=== PATIENT | female | born 1990 | race American Indian/Alaskan Native ===

== ENCOUNTER 2021-08-06 07:14 | Observation (INO) | payer MEDICAID ==
--- NOTE | 2021-08-06 07:54 | Emergency Department Report ---
ED General Adult HPI - General Chief complaint: Nausea/Vomiting/Diarrhea Stated complaint: N/V/ABD PAIN PUI?: No Time Seen by Provider: 08/06/21 07:51 Source: patient, EMS ( EMS documentation not available at time of chart dictation ), RN notes reviewed Mode of arrival: Stretcher Limitations: No Limitations - History of Present Illness Initial comments: The patient is a 30-year-old female, who is 7, para 5. She presents to the ER today with EMS. She complains of abdominal cramping, difficulty laying flat, nausea, vomiting, and generalized weakness. She denies urinary symptoms. EMS reports hypotension in the field. EMS gave fluids. In the emergency room, patient denies headache, neck pain, chest pain but does endorse abdominal pain, and shortness of breath with lying supine. Her symptoms improved with sitting upright. She denies urinary symptoms. She believes that she is today but she is not certain. She does not have a private outpatient [facility] [employer] [facility] [employer] physician that she is aware of. -: Gradual, hour(s) Location: abdomen Severity scale (0 -10): 0 Quality: aching Consistency: constant Improves with: rest Worsens with: movement - Related Data Previous Rx's Medication Instructions Recorded Last Taken Type Ferrous Sulfate [Feosol 325 MG tab] 325 mg PO BID #90 tablet 08/06/21 Unknown Rx Ibuprofen [Motrin 800 MG tab] 800 mg PO TID PRN #30 tablet 08/06/21 Unknown Rx oxyCODONE /ACETAMINOPHEN [Percocet 1 - 2 tab PO Q6HR PRN #7 tablet 08/06/21 Unknown Rx 5/325 mg] Allergies Allergy/AdvReac Type Severity Reaction Status Date / Time No Known Allergies Allergy Unverified 08/06/21 08:00 ED Review of Systems ROS: Stated complaint: N/V/ABD PAIN Other details as noted in HPI Constitutional: malaise, weakness. denies: fever Eyes: denies: eye discharge ENT: denies: epistaxis Respiratory: shortness of breath. denies: cough Cardiovascular: denies: chest pain Gastrointestinal: abdominal pain, nausea, vomiting Genitourinary: denies: dysuria Neurological: weakness ED Past Medical Hx - Medications Home Medications: Home Medications Medication Instructions Recorded Confirmed Last Taken Type Ferrous Sulfate [Feosol 325 MG tab] 325 mg PO BID #90 tablet 08/06/21 Unknown Rx Ibuprofen [Motrin 800 MG tab] 800 mg PO TID PRN #30 tablet 08/06/21 Unknown Rx oxyCODONE /ACETAMINOPHEN [Percocet 1 - 2 tab PO Q6HR PRN #7 tablet 08/06/21 Unknown Rx 5/325 mg] ED Physical Exam - General Limitations: Physical Limitation General appearance: alert, anxious, in distress - Head Head exam: Present: atraumatic, normocephalic - Eye Eye exam: Present: normal appearance, EOMI. Absent: nystagmus - ENT ENT exam: Present: normal exam, normal orophraynx, mucous membranes moist, normal external ear exam - Neck Neck exam: Present: normal inspection, full ROM. Absent: tenderness, meningismus - Respiratory Respiratory exam: Present: normal lung sounds bilaterally. Absent: respiratory distress, wheezes, rales, rhonchi, stridor, decreased breath sounds - Cardiovascular Cardiovascular Exam: Present: regular rate, normal rhythm, normal heart sounds. Absent: bradycardia, tachycardia, irregular rhythm, systolic murmur, diastolic murmur, rubs, gallop - GI/Abdominal GI/Abdominal exam: Present: soft, tenderness, other (There is mild diffuse abd ominal tenderness.). Absent: distended, guarding, rebound, rigid, pulsatile mass - Extremities Exam Extremities exam: Present: normal inspection, full ROM, other (2+ pulses noted in the bilateral upper and lower extremities. There is no palpable cord. negative Homans sign. Muscular compartments are soft. The pelvis is stable.). Absent: pedal edema, calf tenderness - Back Exam Back exam: Present: normal inspection, full ROM. Absent: tenderness, CVA tenderness (R), CVA tenderness (L), paraspinal tenderness, vertebral tenderness - Neurological Exam Neurological exam: Present: alert, oriented X3, other (No facial droop. Tongue midline. Extraocular movements intact bilaterally. Facial sensation intact to light touch in V1, V2, V3 distribution bilaterally. 5 and a 5 strength in 4 extremities. Sensation intact to light touch in 4 extremities.). Absent: motor sensory deficit - Psychiatric Psychiatric exam: Present: anxious - Skin Skin exam: Present: warm, dry, intact, normal color. Absent: rash ED Course Vital Signs 08/06/21 08/06/21 08/06/21 07:44 08:15 08:21 Temperature 97.4 F L Pulse Rate 87 Respiratory 18 14 Rate Blood Pressure Blood Pressure 93/45 [Left] O2 Sat by Pulse 98 100 100 Oximetry 08/06/21 08/06/21 08/06/21 08:24 08:30 08:46 Temperature 98.0 F Pulse Rate 90 87 93 H Respiratory 16 22 29 H Rate Blood Pressure 98/56 104/62 104/62 Blood Pressure [Left] O2 Sat by Pulse 100 100 100 Oximetry 08/06/21 08/06/21 08/06/21 09:00 09:16 10:21 Temperature Pulse Rate 81 82 Respiratory 17 16 Rate Blood Pressure 99/55 99/52 108/68 Blood Pressure [Left] O2 Sat by Pulse 100 100 Oximetry 08/06/21 10:31 Temperature Pulse Rate Respiratory Rate Blood Pressure 95/54 Blood Pressure [Left] O2 Sat by Pulse Oximetry - Reevaluation(s) Reevaluation #1: 08/06/21 10:23 Differential diagnosis, include but limited to: Orthostasis, vagal event, hype remesis gravidarum, , ectopic Assessment and plan: 30-year-old female, with abdominal pain, nausea, vomiting, tenderness, hypotension, found to have right-sided tubal , with heart rate, and positive free fluid in the right upper quadrant. During the patient's initial evaluation, she is afebrile, with reassuring vital signs, in moderate distress. I performed a bedside [id number] transabdominal ultrasound, and was not able to definitively identify an intrauterine . Therefore, dedicated laboratory studies and ultrasound were ordered. Have personally reviewed the ultrasound images, performed by radiology technicians, but these images have not been interpreted formally. However, I am confident in this diagnosis. I have reached out to obstetrics gynecology on-call, Dr. Ibarra. I discussed the patient's history, physical, laboratory studies imaging studies and clinical impression. I have requested an emergent gynecologic consultation for presumed right-sided tubal with impending rupture. Dr. Ibarra is going to come by and evaluate the patient emergently. Patient advised of nature of her diagnosis. Establish second large-bore IV, continue IV fluids, n.p.o., anticipate expedience transferred to the operating room for definitive intervention. Dr. Ibarra to assume care of the patient, and arrange operative intervention at this time. 08/06/21 14:17 ED Medical Decision Making - Lab Data Result diagrams: 08/06/21 08:07 08/06/21 08:07 Vital Signs 08/06/21 08/06/21 08/06/21 07:44 08:15 08:21 Temperature 97.4 F L Pulse Rate 87 Respiratory 18 14 Rate Blood Pressure Blood Pressure 93/45 [Left] O2 Sat by Pulse 98 100 100 Oximetry 08/06/21 08/06/21 08/06/21 08:24 08:30 08:46 Temperature 98.0 F Pulse Rate 90 87 93 H Respiratory 16 22 29 H Rate Blood Pressure 98/56 104/62 104/62 Blood Pressure [Left] O2 Sat by Pulse 100 100 100 Oximetry 08/06/21 09:00 Temperature Pulse Rate 81 Respiratory 17 Rate Blood Pressure 99/55 Blood Pressure [Left] O2 Sat by Pulse 100 Oximetry Lab Results 08/06/21 08/06/21 08/06/21 Range/Units 08:07 08:07 08:07 WBC 10.0 (4.5-11.0) K/mm3 RBC 3.22 L (3.65-5.03) M/mm3 Hgb 10.0 L (10.1-14.3) gm/dl Hct 30.1 L (30.3-42.9) % MCV 94 (79-97) fl MCH 31 (28-32) pg MCHC 33 (30-34) % RDW 16.0 H (13.2-15.2) % Plt Count 205 (140-440) K/mm3 Sodium 138 (137-145) mmol/L Potassium 4.1 (3.6-5.0) mmol/L Chloride 108.4 H (98-107) mmol/L Carbon Dioxide 19 L (22-30) mmol/L Anion Gap 15 mmol/L BUN 10 (7-17) mg/dL Creatinine 0.7 (0.6-1.2) mg/dL Estimated GFR > 60 ml/min BUN/Creatinine Ratio 14 % Glucose 129 H (65-100) mg/dL Calcium 8.1 L (8.4-10.2) mg/dL Magnesium 1.60 L (1.7-2.3) mg/dL Total Bilirubin 0.30 (0.1-1.2) mg/dL AST 9 (5-40) units/L ALT 7 (7-56) units/L Alkaline Phosphatase 37 (35-129) units/L Total Protein 5.2 L (6.3-8.2) g/dL Albumin 3.3 L (3.9-5) g/dL Albumin/Globulin Ratio 1.7 % HCG, Quant 52255 H (0-4) mIU/mL - EKG Data -: EKG Interpreted by Ms EKG shows normal: sinus rhythm Rate: normal - EKG Data 08/06/21 10:07 The EKG is interpreted at 08: 57 Sinus rhythm, rate 80 bpm. Normal axis, normal intervals, high left ventricular voltage, normal P wave axis. Motion artifact noted. Abnormal EKG. Not a STEMI. - Radiology Data Radiology results: report reviewed, image reviewed FIRSTTRIMESTER OBSTETRIC ULTRASOUND ULTRASOUND OB TRANSVAGINAL HISTORY: Abdominal pain during COMPARISON: None. TECHNIQUE: Routine transabdominal and transvaginal OB ultrasound performed. FINDINGS: Uterus: Mildly enlarged measuring 10.0 x 5.3 x 7.1 cm. Gestational Sac: A gestational sa c is identified in the vicinity of the right fallopian tubule which contains a small pole and yolk sac. Yolk Sac: Normal in appearance. Fetus/Embryo: [place]-rump length of 1.4 cm, corresponding to an estimated gestational age of 7 weeks 5 days. Embryonic/ anatomy is too small for evaluation. Embryonic/ cardiac activity: 127bpm Placenta: Too small for evaluation. Amniotic fluid volume: Subjectively appropriate for gestational age. Ovaries: The right ovary is normal in size and appearance with normal blood flow, measuring 2.2 x 1.5 x 1.7 cm. The left ovary is normal in size and appearance with normal blood flow, measuring 2.1 x 2.3 x 2.0 cm. Additional findings: There is moderate to large free fluid concerning for a ruptured ectopic . IMPRESSION Ruptured right tubal ectopic is suspected as described. CRITICAL RESULT: Time of Discovery (REGIONAL PROGRAM MANAGER/CDT): 0935 hours Time of Communication (REGIONAL PROGRAM MANAGER/CDT): 0938 hours Licensed Practitioner Receiving Report: Dr. Obregon Read-Back Performed: Yes. Signer Name: Steve Brown Jr, MD Signed: 08/06/2021 9:39 AM Workstation Name: [id number] Critical Care Time: Yes Critical care time in (mins) excluding proc time.: 35 Critical care attestation.: If time is entered above; I have spent that time in minutes in the direct care of this critically ill patient, excluding procedure time. ED Disposition Clinical Impression: Ruptured ectopic Disposition: ADMITTED INPATIENT Is pt being admited?: Yes Does the pt Need Aspirin: No Condition: Serious
[2021-08-06 08:28] LABS: Hematocrit 30.1 % (30.3-42.9); Mean Corpuscular HGB Conc 33 % (30-34); Mean Corpuscular Volume 94 fl (79-97); Platelet Count 205 K/mm3 (140-440); Red Blood Count 3.22 M/mm3 (3.65-5.03)
[2021-08-06] MEDS ORDERED: LACTATED RINGERS 1,000 ML IV ONE ×2 (08:30→10:26)
[2021-08-06] MEDS ORDERED: METOCLOPRAMIDE 10 MG/2 ML INJ IV SCH (08:30)
[2021-08-06] MEDS ORDERED: D5W/0.45% NACL 1,000 ML IV SCH (08:30)
[2021-08-06 08:46] LABS: Alanine Aminotransferase 7 units/L (7-56); Albumin 3.3 g/dL (3.9-5); BUN/Creatinine Ratio 14; Blood Urea Nitrogen 10 mg/dL (7-17); Calcium 8.1 mg/dL (8.4-10.2); Hemolysis Index 1
[2021-08-06] MEDS ORDERED: MAGNESIUM OXIDE 400 MG TAB PO STA (09:16)
[2021-08-06 10:24] LABS: Bilirubin,Urine NEG (Negative); Blood,Urine NEG (Negative); Color,Urine Yellow (Yellow); Mucus,Urine 3+ /HPF; Urobilinogen,Urine < 2.0 mg/dL (<2.0)
--- NOTE | 2021-08-06 10:43 | Ultrasound Report ---
FIRSTTRIMESTER OBSTETRIC ULTRASOUND ULTRASOUND OB TRANSVAGINAL HISTORY: Abdominal pain during COMPARISON: None. TECHNIQUE: Routine transabdominal and transvaginal OB ultrasound performed. FINDINGS: Uterus: Mildly enlarged measuring 10.0 x 5.3 x 7.1 cm. Gestational Sac: A gestational sac is identified in the vicinity of the right fallopian tubule which contains a small pole and yolk sac. Yolk Sac: Normal in appearance. Fetus/Embryo: [place]-rump length of 1.4 cm, corresponding to an estimated gestational age of 7 weeks 5 days. Embryonic/ anatomy is too small for evaluation. Embryonic/ cardiac activity: 127bpm Placenta: Too small for evaluation. Amniotic fluid volume: Subjectively appropriate for gestational age. Ovaries: The right ovary is normal in size and appearance with normal blood flow, measuring 2.2 x 1. 5 x 1.7 cm. The left ovary is normal in size and appearance with normal blood flow, measuring 2.1 x 2.3 x 2.0 cm. Additional findings: There is moderate to large free fluid concerning for a ruptured ectopic pregnanc y. IMPRESSION Ruptured right tubal ectopic is suspected as described. CRITICAL RESULT: Time of Discovery (PRODUCT SAFETY TESTER/CDT): 0935 hours Time of Communication (PRODUCT SAFETY TESTER/CDT): 0938 hours Licensed Practitioner Receiving Report: Dr. Obregon Read-Back Performed: Yes. Signer Name: Steve Brown Jr, MD Signed: 08/06/2021 10:39 AM Workstation Name: [id number]
--- NOTE | 2021-08-06 10:43 | Ultrasound Report ---
FIRSTTRIMESTER OBSTETRIC ULTRASOUND ULTRASOUND OB TRANSVAGINAL HISTORY: Abdominal pain during COMPARISON: None. TECHNIQUE: Routine transabdominal and transvaginal OB ultrasound performed. FINDINGS: Uterus: Mildly enlarged measuring 10.0 x 5.3 x 7.1 cm. Gestational Sac: A gestational sac is identified in the vicinity of the right fallopian tubule which contains a small pole and yolk sac. Yolk Sac: Normal in appearance. Fetus/Embryo: [place]-rump length of 1.4 cm, corresponding to an estimated gestational age of 7 weeks 5 days. Embryonic/ anatomy is too small for evaluation. Embryonic/ cardiac activity: 127bpm Placenta: Too small for evaluation. Amniotic fluid volume: Subjectively appropriate for gestational age. Ovaries: The right ovary is normal in size and appearance with normal blood flow, measuring 2.2 x 1. 5 x 1.7 cm. The left ovary is normal in size and appearance with normal blood flow, measuring 2.1 x 2.3 x 2.0 cm. Additional findings: There is moderate to large free fluid concerning for a ruptured ectopic pregnanc y. IMPRESSION Ruptured right tubal ectopic is suspected as described. CRITICAL RESULT: Time of Discovery (SENIOR MEDICAL DIRECTOR/CDT): 0935 hours Time of Communication (SENIOR MEDICAL DIRECTOR/CDT): 0938 hours Licensed Practitioner Receiving Report: Dr. Obregon Read-Back Performed: Yes. Signer Name: Steve Brown Jr, MD Signed: 08/06/2021 10:39 AM Workstation Name: [id number]
--- NOTE | 2021-08-06 11:21 | Short Stay Summary ---
Short Stay Documentation Date of service: 08/06/21 Narrative H&P: This 30 year-old female 8 para 4 who presents with worsening nausea vomiting abdominal pain that started this morning at approximately 1:00 patient states her last normal period was in May. She did perform a urine test that was faintly positive. Pain became excruciating at approximately 5 AM at which point she called EMS and was transported here to the emergency department. Evaluation in the emergency department appears to be consistent with tubal ectopic . Patient is scheduled to go to the OR for salpingectomy. OBhx x4, SAB x2, ectopic (medically treated) - History Past Medical History: No medical history Past Surgical History: No surgical history Social history: full code, other (Marijuana use ) - Allergies and Medications Current Medications: Allergies No Known Allergies Allergy (Unverified 08/06/21 08:00) Home Medications Medication Instructions Recorded Confirmed Last Taken Type No Known Home Medications [No 08/06/21 08/06/21 Unknown History Reported Home Medications] Active Medications Dextrose/Sodium Chloride (D5/0.45ns) 1,000 mls @ 0 mls/hr IV DIRECT ROBERT Lactated Ringer's (Lactated Ringers) 1,000 mls @ 999 mls/hr IV BOLUS ONE Stop: 08/06/21 11:26 Last Admin: 08/06/21 10:39 Dose: 999 mls/hr Cefazolin Sodium (Ancef/Sterile Water 2 Gm/20 Ml) 2 gm in 20 mls @ 80 mls/hr IV PREOP NR; Protocol Metoclopramide HCl (Metoclopramide 10 Mg/2 Ml Inj) 10 mg IV ONCE@0830 ROBERT Stop: 08/06/21 11:30 Last Admin: 08/06/21 08:34 Dose: 10 mg - Physical exam General appearance: no acute distress - Brief post op/procedure progress note Date of procedure: 08/06/21 Pre-op diagnosis: tubal Post-op diagnosis: same Procedure: (R) salpingectomy Anesthesia: GETA Findings: (R) bleeding tubal Surgeon: JUNAIS PRATER Estimated blood loss: other (1500mL in abdomen, no blood loss from procedure) Pathology: list ((R) fallopian tube) Specimen disposition: to lab Condition: stable (With excessive EBL from ruptured tubal will admit overnight) - Disposition Condition at discharge: Good Disposition: 01 HOME / SELF CARE / HOMELESS Short Stay Discharge Plan Follow up with: JUANIS PRATER MD [Staff Physician] - 08/18/21 9:45 am ([facility]) PRIMARY CARE, [Primary Care Provider] - 3-5 Days Prescriptions: Ferrous Sulfate [Feosol 325 MG tab] 325 mg PO BID #90 tablet Ibuprofen [Motrin 800 MG tab] 800 mg PO TID PRN #30 tablet PRN Reason: Pain oxyCODONE /ACETAMINOPHEN [Percocet 5/325 mg] 1 - 2 tab PO Q6HR PRN #7 tablet PRN Reason: Pain
[2021-08-06] MEDS ORDERED: HYDROmorphone 1 MG/1 ML INJ ONE (11:54)
[2021-08-06] MEDS ORDERED: propofoL 200 MG/20 ML VIAL IV ONE (11:55)
[2021-08-06] MEDS ORDERED: LIDOCAINE MPF (2%) 20 MG/1 ML VIAL 5 ML ONE (11:55)
[2021-08-06] MEDS ORDERED: ROCURONIUM 50 MG/5 ML INJ IV ONE (11:56)
[2021-08-06] MEDS ORDERED: ceFAZolin/Water 2 GM/20 ML 2 GM/20 ML SYRINGE IV NR (12:00)
[2021-08-06] MEDS ORDERED: BUPIVACAINE/PF (0.5%) 5 MG/1 ML 30 ML VIAL INFILTRATI ONE ×3 (12:09→13:10)
[2021-08-06] MEDS ORDERED: HYDROmorphone 1 MG/1 ML INJ IV PRN ×2 (12:10)
[2021-08-06] MEDS ORDERED: ONDANSETRON 4 MG/2 ML INJ IV PRN (12:10)
--- NOTE | 2021-08-06 12:11 | Anesthesia Consultation ---
Anesthesia Consult and Med Hx Date of service: 08/06/21 - Airway Anesthetic Teeth Evaluation: Good ROM Head & Neck: Adequate Mental/Hyoid Distance: Adequate Mallampati Class: Class II Intubation Access Assessment: Good - Pre-Operative Health Status ASA Pre-Surgery Classification: ASA2, Emergency Proposed Anesthetic Plan: General - Pulmonary Hx Smoking: No Hx Sleep Apnea: No - Gastrointestinal Hx Gastroesophageal Reflux Disease: No - Hematic Hx Anemia: Yes - Other Systems Hx Obesity: No
--- NOTE | 2021-08-06 12:11 | Anesthesia Day of Surgery ---
Anesthesia Day of Surgery - Day of Surgery Patient Examined: Yes Patient H&P Reviewed: Yes Patient is NPO: Yes
[2021-08-06] MEDS ORDERED: SUCCINYLCHOLINE CHLORIDE 200 MG/10 ML INJ MDV ONE (12:26)
[2021-08-06] MEDS ORDERED: dexAMETHasone 20 MG/5 ML VIAL ONE (12:56)
[2021-08-06] MEDS ORDERED: ceFAZolin 1 GM VIAL ONE ×2 (12:56)
[2021-08-06] MEDS ORDERED: WATER FOR IRRIG STERILE 1,000 ML BOTTLE IR ONE (13:11)
[2021-08-06] MEDS ORDERED: LACTATED RINGERS 2,000 ML ONE (13:15)
[2021-08-06] MEDS ORDERED: GLYCOPYRROLATE 0.4 MG/2 ML INJ ONE (13:43)
[2021-08-06] MEDS ORDERED: NEOSTIGMINE 10MG/10 ML INJ MDV ONE (13:43)
[2021-08-06] MEDS ORDERED: METOCLOPRAMIDE 10 MG/2 ML INJ IV PRN (14:00)
[2021-08-06] MEDS ORDERED: SODIUM CHLORIDE 0.45% 1000 ML 1,000 ML IV SCH (14:00)
[2021-08-06] MEDS ORDERED: ACETAMINOPHEN 325 MG TAB PO PRN (14:00)
[2021-08-06] MEDS ORDERED: traMADol 50 MG TAB PO PRN (14:00)
[2021-08-06] MEDS ORDERED: IBUPROFEN 800 MG TAB PO PRN (14:00)
[2021-08-06] MEDS ORDERED: ONDANSETRON 4 MG/2 ML INJ ONE (15:36)
--- NOTE | 2021-08-06 18:08 | Post Anesthesia Evaluation ---
- Post Anesthesia Evaluation Patient Participated: Yes Airway Patent: Yes Stable Respiratory Function: Yes Nausea/Vomiting: No Temp > 96.8F: Yes Pain Manageable: Yes Adequeate Hydration: Yes Anesthesia Complications: No Block Receding Appropriately: Not Applicable Patient on Ventilator: No
[2021-08-06] MEDS: oxyCODONE /ACETAMINOPHEN 5-325MG TAB PO PRN (22:39)
[2021-08-07] MEDS: oxyCODONE /ACETAMINOPHEN 5-325MG TAB PO PRN ×2 (06:00→16:08)
[2021-08-07 06:25] LABS: Hematocrit 20.1 % (30.3-42.9); Hemoglobin 6.7 gm/dl (10.1-14.3)
[2021-08-07] MEDS ORDERED: SODIUM CHLORIDE 0.9% 500 ML 500 ML IV ONE ×2 (07:34→11:00)
--- NOTE | 2021-08-07 08:47 | Operative Report ---
Operative Report Operative Report: Date of operation: 08/06/2021 Pre-operative diagnosis: 1. Ectopic tubal Post-operative diagnosis: 1. Right isthmic tubal Procedure name(s): 1. Laparoscopic right salpingectomy Surgeon: Atiya Ibarra MD Fur Farmer: [] Anesthesia: General endotracheal anesthesia Anesthesiologist: Dr. English EBL: Approximately 1500 mL of clots and blood were evacuated from the abdomen and pelvis. No significant blood loss occurred from the actual procedure. Urine output: 600 mL of clear yellow urine Findings: Grossly normal uterus, left fallopian tube and bilateral ovaries Procedure: After risks, benefits, complications, consequences and alternatives for this procedure were discussed with patient and she voiced understanding desire to proceed, the patient was taken to the operating suite and placed in the supine position. General anesthesia was induced. She placed in dorsolithotomy position and prepped and draped in the usual sterile fashion. Timeout was performed. A Gustafson catheter was introduced to the bladder with drainage of clear yellow urine. An operative speculum was introduced into the vagina, and the anterior lip of the cervix was grasped with an Allis clamp. The uterus was sounded to 8 cm. The cervix was progressively dilated to allow the Sargis uterine manipulator to be placed without difficulty. The speculum and clamp were removed. Sterile gloves were placed and attention was turned to the abdomen. An supraumbilical incision was made and a 5 mm bladeless Optiview trocar was placed with laparoscope and camera inserted. No obvious bowel, bladder, ureteral or major vascular injury was noted. The abdomen was insufflated. She was then placed in Trendelenburg position. The above findings were noted. Then an incision was made approximately 2 cm superior to the symphysis pubis in the midline. An 10 mm bladeless trocar was introduced under the direct visualization. Again no obvious bowel, bladder, ureteral or major vascular injury was noted. An additional 5 mm trocar was placed in the right lower midclavicular region through an incision. The trocar was placed under direct visualization.The blood and clots and blood were evacuated from the abdomen. There was a small amount of bleeding occurring from the in the right isthmic region of the fallopian tube. No bowel, bladder, ureteral or major vascular injury was noted. The uterus was elevated, and using the 5 mm [place] LigaSure device the right fallopian tube with the tubal was removed in the usual fashion. The tube of the was placed in an Endo Catch bag and removed through the super pubic incision without any difficulty. Attention was turned back to the adnexa when hemostasis was noted. The remaining corneal portion of the tube was cauterized. And hemostasis was noted. The CO2 was released under direct visualization to ensure hemostasis. Hemostasis was noted. At which point the procedure was ended. The 10 mm trochar was removed under direct visualization, hemostasis was noted. The right lower midclavicular 5 mm trocar was removed, hemostasis was noted. The CO2 was then released through the 5 mm supraumbilical trocar and the trocar was removed. The incisions were infused with half percent Marcaine without epinephrine. The incisions were reapproximated using 4-0 Vicryl in a subcuticular manner. Hemostasis was noted. Attention was turned to the vagina where the Sargis uterine manipulator was removed. Hemostasis was noted. The gustafson catheter was removed. ~600 mL clear yellow urine was in the gustafson bag at the end of the procedure. Patient was taken to recovery room in stable condition.
[2021-08-07] MEDS ORDERED: diphenhydrAMINE 25 MG CAP PO PRN (11:00)
[2021-08-07] MEDS ORDERED: ACETAMINOPHEN 325 MG TAB PO ONE (11:00)
--- NOTE | 2021-08-07 11:08 | Progress Note ---
Assessment and Plan - Patient Problems (1) Ruptured ectopic Current Visit: Yes Status: Acute (2) Hx of unilateral salpingectomy Current Visit: Yes Status: Acute Plan to address problem: -right salpingectomy -cont post op care -d/c home this pm if AFVSS (3) Anemia due to blood loss, acute Current Visit: Yes Status: Acute Plan to address problem: -asymptomatic at this time but will give one unit and replace with po iron. -repeat h/h after one unit is given Subjective - Subjective Date of service: 08/07/21 Principal diagnosis: POD #1 s/p laproscopic salpingectomy for ectopic 2) anemia d/t blood loss Interval history: Pt states she is feeling well. No SOB, chest pain or dizziness. I d/w transfusion due to large EBL and hgb being <7. She expressed understanding and agrees with plan of care at this time. Patient reports: appetite normal, voiding normally, pain well controlled, no dizzy ambulation, no flatus, no bowel movement Objective - Vital Signs Latest vital signs: Vital Signs Temp Pulse Resp BP BP Pulse Ox 08/07/21 07:29 98.9 F 103 H 20 97/53 100 08/07/21 06:00 12 08/07/21 04:00 98.4 F 96 H 18 112/67 100 08/07/21 00:20 98.7 F 100 H 18 117/70 100 08/06/21 22:39 12 08/06/21 20:30 99.1 F 104 H 18 112/65 99 08/06/21 20:20 98 08/06/21 16:26 98.7 F 90 16 120/83 99 08/06/21 16:25 99 08/06/21 15:30 18 08/06/21 12:00 89 18 109/61 100 08/06/21 11:50 99 H 27 H 120/62 100 08/06/21 11:40 86 17 120/62 100 08/06/21 11:30 100 H 16 111/69 100 08/06/21 11:20 85 12 102/63 100 08/06/21 11:10 106 H 15 108/68 100 Intake and Output 08/06/21 08/07/21 08/07/21 22:59 06:59 14:59 Intake Total 480 240 Output Total 750 800 Balance -270 -560 Intake: Oral 480 240 Output: Urine 750 800 Void 750 800 Other: Total, Intake Amount 120 120 Total, Output Amount 400 400 Voiding Method Toilet # Voids Void 1 - Exam Cardiovascular: Present: Normal S1, Normal S2 Lungs: Present: Clear to auscultation, Normal air movement Abdomen: Present: normal appearance, soft, normal bowel sounds (slightly decreased but present). Absent: distention, tenderness, guarding Extremities: Present: normal. Absent: tenderness, edema Deep Tendon Reflex Grade: Normal +2 Incision: Present: normal, dry, intact - Labs Labs: Abnormal lab results 08/06/21 08/07/21 Range/Units 08:07 04:19 Hgb 6.7 L D (10.1-14.3) gm/dl Hct 20.1 L D (30.3-42.9) % Crossmatch See Detail
--- NOTE | 2021-08-07 11:12 | Discharge Summary ---
Providers - Providers Date of Admission: 08/06/21 14:00 Date of discharge: 08/07/21 Attending physician: JUANIS PRATER 08/06/21 10:14 Consult to Physician [CONS] Stat Comment: Consulting Provider: JUANIS PRATER Physician Instructions: Reason For Exam: tubal ectopic Primary care physician: [facility] Hospitalization Reason for admission: other (right ruputed ectopic) Procedure: other (right salpingectom) Procedure details: see op notes Incision: normal, dry, intact Hospital course: Pt was admitted and had emergency surgery for ectopic . He post op course has been complicated by right forearm IV that infiltrated and asymptomatic anemia.She did get 1 unit of prbc with appropriate elevations in h/h. Pt remains stable and cleared for d/c home from room manager standpoint. Condition at discharge: Good Disposition: 01 HOME / SELF CARE / HOMELESS - Discharge Diagnoses (1) Ruptured ectopic Status: Acute (2) Hx of unilateral salpingectomy Status: Acute (3) Anemia due to blood loss, acute Status: Acute Plan - Discharge Medications Prescriptions: Ferrous Sulfate [Feosol 325 MG tab] 325 mg PO BID #90 tablet Ibuprofen [Motrin 800 MG tab] 800 mg PO TID PRN #30 tablet PRN Reason: Pain oxyCODONE /ACETAMINOPHEN [Percocet 5/325 mg] 1 - 2 tab PO Q6HR PRN #7 tablet PRN Reason: Pain - Provider Discharge Summary Activity: routine, no sex for 6 weeks, no heavy lifting 4 weeks Additional instructions: [] Smoking cessation referral if applicable(refer to patient education folder for contact #) [] Refer to [facility] Booklet Call your doctor immediately for: * Fever > 100.5 * Heavy vaginal bleeding ( >1 pad per hour) * Severe persistent headache * Shortness of breath * Reddened, hot, painful area to leg or breast * Drainage or odor from incision. * Keep incision clean and dry at all times and follow doctor's instructions regarding bathing/showering [facility] [employer] at [phone] to get appointment information. - Follow up plan Follow up: JUANIS PRATER MD [Staff Physician] - 08/18/21 9:45 am ([facility]) PRIMARY CAREMD [Primary Care Provider] - 3-5 Days
--- NOTE | 2021-08-07 14:37 | Event Note ---
Date: 08/07/21 CAlled by RN to evaluate IV site. Pt had infiltration and this caused some edema, induration and bruising. I d/w these findings. Will cont with compress at this time and monitor. RN states pt had some blistering at the site, this was not noted on my exam. I will start topical antibx to decrease risk of cellulitis at the site. Will do h/h in a few hours to allow time for observation of the iv site.
[2021-08-07 17:27] LABS: Hematocrit 21.3 % (30.3-42.9); Hemoglobin 7.3 gm/dl (10.1-14.3)
[2021-08-07] MEDS ORDERED: NEOMY 3.5 MG/BACIT 400 UNITS/POLY B 5000 UNITS/GM OINT PACKET TP SCH (20:00)
[2021-08-07 20:18] VITALS: BP 105/66
--- NOTE | 2021-08-09 13:59 | Electrocardiograph Report ---
[facility] Test Date: 2021-08-06 Test Time: 08:57:23 Pat Name: KYLER JOE Department: Room: 2103 Gender: F Legal Adviser: LISS : 1990 Requested By: VILLA CUI Order Number: [id number] Reading MD: Rohan Robles Measurements Intervals [place] Rate: 80 P: 66 PA: 136 QRS: 40 QRSD: 80 T: 44 QT: 378 QTc: 437 Interpretive Statements Sinus rhythm No previous ECG available for comparison Electronically Signed On 08-09-2021 13:59:08 EDT by Rohan Robles
== END 2021-08-07 20:35 | disposition home or self-care (01) ==
LOC: ED 07:14 → 3A 14:00 → OB 15:36
PROVIDERS: ADMIT Obstetrics & Gynecology; ATTEND Obstetrics & Gynecology
DX: O00.101 Right tubal pregnancy without intrauterine pregnancy (principal); O99.011 Anemia complicating pregnancy, first trimester; D62 Acute posthemorrhagic anemia; Z90.79 Acquired absence of other genital organ(s); Z79.899 Other long term (current) drug therapy; Z98.890 Other specified postprocedural states; Z3A.01 Less than 8 weeks gestation of pregnancy
CPT/HCPCS: 36415; 36430; 59151; 76801; 76817; 80053; 81001; 83735; 84702; 85014; 85018; 85027; 85461; 86850; 86900; 86901; 86920; 87086; 88305; 93005; 96374; 96375; 99291; G0378; J0330; J0690; J1100; J1170; J1815; J2405; J2704; J2710; J2765; J2790; J3490; J7040; J7120; P9016; J7070